=== PATIENT | male | born 1985 | race African-American/Black ===

== ENCOUNTER 2020-06-02 18:38 | Emergency (ER) | payer MEDICAID, OTHER ==
[~2020-06-02] VITALS: Ht 177.8 cm; Wt 112.0 kg
[2020-06-02] MEDS ORDERED: ACETAMINOPHEN 325MG TABLET PO STA (19:49)
[2020-06-03 00:50] LABS: BASOPHILS % 1.2 % (0.0-2.0); EOSINOPHILS % 2.5 % (0.0-5.0); HEMATOCRIT. 47.1 % (42.0-52.0); HEMOGLOBIN. 15.5 g/dL (14.0-18.0); LYMPHOCYTES % 27.1 % (20.0-50.0); MEAN CORPUSCULAR HEMOGLOBIN 25.9 pg (28.0-32.0); MONOCYTES % 4.9 % (2.0-8.0); NEUTROPHILS % 64.3 % (40.0-76.0); PLATELET 186 x1000/uL (130-400); RED BLOOD CELL COUNT 5.96 mill/uL (4.7-6.1); RED CELL DISTRIBUTION WIDTH 14.6 % (11.6-14.6)
[2020-06-03 00:57] LABS: CHLORIDE 105 mEq/L (98-107)
[2020-06-03 03:00] VITALS: BP 142/87
== END 2020-06-03 05:13 | disposition left against medical advice (07) ==
LOC: ER 18:44
DX: R07.89 Other chest pain (principal); R20.2 Paresthesia of skin
CPT/HCPCS: 36415; 71045; 80053; 80076; 84484; 85025; 93005; 99284